=== PATIENT | female | born 1930 | race Caucasian/White ===

== ENCOUNTER 2016-09-07 10:38 | Emergency (ER) | payer MEDICARE, BC ==
[~2016-09-07] VITALS: Wt 95.0 kg
[~2016-09-07 10:38] MED LIST: AMLO-147 PO; ATEN50TA PO; ATOR80TA75 PO; CARB100T2 PO; CIPR500T4 PO; CLOB60CR2 TOP; COU5 PO; FLUT16SP17 NASAL; LETR2.5T PO; METR500T14 PO; NIZ30CR2 TOP; OMEP40CA6 PO; OXYB5TAB PO; TEMA15CA PO; VALS1TAB82 PO
[2016-09-07] MEDS ORDERED: SOD CHLORIDE 0.9% 1,000 ML IV STA (15:25)
[2016-09-07] MEDS ORDERED: ONDANSETRON 4 MG INJ IV STA (15:25)
[2016-09-07] MEDS ORDERED: morphine 4 MG/ML VIAL IV STA (15:25)
[2016-09-07 15:53] LABS: ADD SCAN DIFF NO
[2016-09-07 15:56] LABS: BASOPHIL # 0.1 10^3/ul (0.0-0.1); EOSINOPHILS % 0.4 % (0.0-7.0); HEMATOCRIT 38.3 % (37.0-47.0); HEMOGLOBIN 12.6 g/dl (12.0-16.0); LYMPHOCYTES # 1.5 10^3/ul (0.8-2.9); LYMPHOCYTES % 22.5 % (15.0-51.0); MEAN CORPUSCULAR HEMOGLOBIN 30.9 pg (29.0-33.0); MEAN CORPUSCULAR HGB CONC 32.9 g/dl (32.0-37.0); MEAN CORPUSCULAR VOLUME 93.9 fl (82.0-101.0); MEAN PLATELET VOLUME 10.7 fl (7.4-10.4); MONOCYTE # 0.5 10^3/ul (0.3-0.9); MONOCYTES % 7.6 % (0.0-11.0); NEUTROPHIL # 4.7 10^3/ul (1.6-7.5); NEUTROPHILS % 68.2 % (39.0-77.0); PLATELET COUNT 184 10^3/UL (140-415); RED BLOOD COUNT 4.08 10^6/ul (4.20-5.40); RED CELL DISTRIBUTION WIDTH 12.8 % (11.5-14.5); WHITE BLOOD COUNT 6.9 10^3/ul (4.8-10.8)
[2016-09-07 16:03] LABS: POTASSIUM 4.6 mmol/L (3.5-5.1)
[2016-09-07 16:04] LABS: INR 1.36; PROTIME 16.8 Sec (12.2-14.2); PT RATIO 1.3
[2016-09-07 16:05] LABS: BILIRUBIN,INDIRECT 0.5 mg/dl (0-1.1); BILIRUBIN,TOTAL 0.5 mg/dl (0.2-1.3); CREATININE 1.14 mg/dl (0.44-1.00); PARTIAL THROMBOPLASTIN TIME 26.2 Sec (25.0-35.0)
[2016-09-07 16:06] LABS: ALBUMIN/GLOBULIN RATIO 1.29; CALCIUM 10.4 mg/dl (8.4-10.2); TOTAL PROTEIN 7.1 g/dl (6.1-8.1)
--- NOTE | 2016-09-07 16:40 | RADRPT ---
PROCEDURE: CT Abdomen and Pelvis without intravenous contrast. CLINICAL INDICATION: Lower abdominal pain. Decreased appetite. Nausea. . TECHNIQUE: CT scan of the abdomen and pelvis without intravenous contrast was performed on a multi -slice CT scanner. Coronal and sagittal reformatted images were obtained from the axial source image s. Images were reviewed on a high-resolution PACS workstation. Total DLP = 1246.8 mGy-cm. CTDIvol = 21.5 mGy. One or more of the following dose reduction techniques were used: Automated exposure control. Adjustment of the mA and/or kV according to patient size. Use of iterative reconstruction technique. COMPARISON: 02/21/2015 FINDINGS: CT abdomen and pelvis: The lung bases are clear. The heart size is normal in size. There is dense calcific atherosclerosi s of the mitral valve. Small anterior pericardial effusion is present.. The liver is normal in siz e and density without focal mass or intrahepatic biliary dilatation. The spleen is normal in size a nd homogeneous in density. The pancreas as visualized is normal. The gallbladder has been removed .. The adrenal glands are normal. The kidneys are symmetric in size. There is a 1.9 cm exophytic mass at the upper pole of the left kidney unchanged. There is an exophytic high density 1.7 cm mass at the lower pole of the left kidney slightly larger than previous exam. There is no evidence of o bstructive uropathy or urolithiasis. The stomach is partially collapsed, but is grossly unremarkable. The small bowels are unremarkable. The colon and rectum are normal. There is extensive sigmoid diverticulosis. There is no evidence of appendicitis or diverticulitis. The uterus has been removed.. The bladder is normal. There is no ab dominal or pelvic adenopathy, free fluid, free air, mass or mesenteric inflammation. The aorta is normal in caliber with calcific atherosclerosis . The osseous structures showing degen erative spondylosis of the spine. Spinal stenosis is present at the L4-5 L5-S1 levels. No osteolyti c or osteoblastic lesions are identified. The soft tissues are within normal limits. Lack of IV an d oral contrast limits sensitivity of exam. IMPRESSION: 1. Status post cholecystectomy and hysterectomy. 2. Sigmoid diverticulosis without evidence of diverticulitis. 3. Bilateral stable hyperdense exophytic renal masses. These likely represent a hemorrhagic or prot einaceous cyst. Ultrasound of the kidneys could be obtained to further evaluate. 4. Calcific atherosclerosis of the aorta and mitral valve. 5. 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 RPTAT: VV .Juan Oshea MD, Date Time Electronically viewed and signed by .Juan Oshea MD, MD on 09/07/2016 16:39 .L/
[2016-09-07] MEDS ORDERED: DOCU-144 PO (16:58)
[2016-09-07] MEDS ORDERED: ONDA4TAB14 PO (16:58)
[2016-09-07] MEDS ORDERED: HYDR-902 PO (16:58)
--- NOTE | 2016-09-07 17:01 | ERD ---
ER Documentation Chief Complaint Date/Time DATE: 09/07/16 TIME: 17:00 Chief Complaint abd pain x 10 days with n/v denies diarrhea HPI Patient is an 86-year-old female with hypertension and previous blood clot who presents with abdominal pain. She has had abdominal pain for 1.5 weeks. The pain was getting worse. She called her primary doctor who told her to go to an urgent care and went to urgent care. However they sent her to the emergency department for further workup. The pain is in the lower abdomen and is on the left and right lower quadrants. It moves back and forth. She has had no treatment for pain as of yet. Upon review of old medical records this is the patient's seventh visit to the ER since 2008. ROS All systems reviewed and are negative except as per history of present illness. Medications Home Meds Active Scripts Docusate Sodium* (Colace*) 100 Mg Capsule, 100 MG PO TID, #30 CAP Prov:CLEO GAMEZ MD 09/07/16 Ondansetron (Ondansetron Odt) 4 Mg Tab.rapdis, 4 MG PO Q6H Y for NAUSEA AND/OR VOMITING, #30 TAB Prov:CLEO GAMEZ MD 09/07/16 Hydrocodone/Acetaminophen ([place] 10-325 Tablet) 1 Each Tablet, 1 TAB PO Q6H Y for PAIN, #7 TAB Prov:CLEO GAMEZ MD 09/07/16 Metronidazole (Flagyl) 500 Mg Tab, 500 MG PO Q8 for 7 Days, TAB Prov:COURT JUÁREZ MD 02/21/15 Ciprofloxacin Hcl* (Ciprofloxacin Hcl*) 500 Mg Tablet, 500 MG PO BID for 7 Days , TAB Prov:COURT JUÁREZ MD 02/21/15 Reported Medications Carbamazepine* (Carbamazepine*) 100 Mg Tab.chew, 50 MG PO BID, TAB.CHEW 02/21/15 Clobetasol Propionate* (Clobetasol Propionate*) 60 Gm Cream.gm., 1 APPLIC TOP BID, TUB 02/21/15 Ketoconazole* (Nizoral*) 2%-30 Gm Cream..g., 1 APPLIC TOP DAILY, TUB 02/21/15 Oxybutynin Chloride* (Oxybutynin Chloride* ER) 5 Mg/Blist Pack Tab.osm.24, 5 MG PO DAILY, TAB.SA 02/21/15 Letrozole* (Letrozole*) 2.5 Mg Tablet, 2.5 MG PO DAILY, TAB 02/21/15 Omeprazole* (Omeprazole*) 40 Mg Capsule.dr, 40 MG PO BID, CAP 02/21/15 Fluticasone Propionate* (Fluticasone Propionate* Nasal) 50 Mcg/[place] - 16 Gm [place].susp, 2 SPRAYS NASAL DAILY, EA TO EACH NOSTRIL 02/21/15 Temazepam* (Temazepam*) 15 Mg Capsule, 15 MG PO HS Y for INSOMNIA, CAP 02/21/15 Warfarin Sod (Coumadin) 5 Mg Tablet, 5 MG PO DAILY, TAB 02/21/15 Atorvastatin* (Atorvastatin*) 80 Mg Tablet, 80 MG PO HS, TAB 02/21/15 Amlodipine Besylate* (Amlodipine Besylate*) 10 Mg Tablet, 10 MG PO DAILY, TAB 02/21/15 Atenolol* (Atenolol*) 50 Mg Tablet, 50 MG PO DAILY, TAB 02/21/15 Valsartan-Hydrochlorothiazide (Valsartan-HCTZ) 320-25 Mg Tablet, 1 TAB PO DAILY , TAB 02/21/15 Allergies Allergies: Coded Allergies: No Known Allergies (Verified Allergy, Mild, 02/21/15) PMhx/Soc History of Surgery: Yes (APPENDICITES, VARICOSE VEIN, GALLBLADDER REMOVAL, HYSTERECTOMY,BREAST CA) Anesthesia Reaction: No Hx Neurological Disorder: Yes (TRIGEMINAL NEURALGIA) Hx Respiratory Disorders: Yes (PE) Hx Cardiac Disorders: Yes (HPT, AORTIC STENOSIS, HIGH CHOLESTEROL) Hx Psychiatric Problems: No Hx Miscellaneous Medical Probl: No Hx Alcohol Use: No Hx Substance Use: No Hx Tobacco Use: No FmHx Family History: No diabetes Physical Exam Vitals Vital Signs Date Time Temp Pulse Resp B/P Pulse Ox O2 Delivery O2 Flow Rate FiO2 09/07/16 10:43 98.8 90 18 143/66 99 Physical Exam Const: Mild distress secondary to pain Head: Atraumatic Eyes: Normal Conjunctiva ENT: Normal External Ears, Nose and Mouth. Neck: Full range of motion..~ No meningismus. Resp: Clear to auscultation bilaterally Cardio: Regular rate and rhythm, no murmurs Abd: Soft, right and left lower quadrant pain with palpation without rebound or guarding Skin: No petechiae or rashes Back: No midline or flank tenderness Ext: No cyanosis, or edema Neur: Awake and alert Psych: Normal Mood and Affect Result Diagram: 09/07/16 1545 09/07/16 1545 Results 24 hrs Laboratory Tests Test 09/07/16 15:45 White Blood Count 6.910^3/ul Red Blood Count 4.0810^6/ul Hemoglobin 12.6g/dl Hematocrit 38.3% Mean Corpuscular Volume 93.9fl Mean Corpuscular Hemoglobin 30.9pg Mean Corpuscular Hemoglobin Concent 32.9g/dl Red Cell Distribution Width 12.8% Platelet Count 32009^3/UL Mean Platelet Volume 10.7fl Neutrophils % 68.2% Lymphocytes % 22.5% Monocytes % 7.6% Eosinophils % 0.4% Basophils % 1.0% Nucleated Red Blood Cells % 0.0/100WBC Neutrophils # 4.710^3/ul Lymphocytes # 1.510^3/ul Monocytes # 0.510^3/ul Eosinophils # 0.010^3/ul Basophils # 0.110^3/ul Nucleated Red Blood Cells # 0.010^3/ul Prothrombin Time 16.8Sec Prothrombin Time Ratio 1.3 INR International Normalized Ratio 1.36 Activated Partial Thromboplast Time 26.2Sec Sodium Level 144mmol/L Potassium Level 4.6mmol/L Chloride Level 110mmol/L Carbon Dioxide Level 21mmol/L Anion Gap 18 Blood Urea Nitrogen 25mg/dl Creatinine 1.14mg/dl Glucose Level 123mg/dl Calcium Level 10.4mg/dl Total Bilirubin 0.5mg/dl Direct Bilirubin 0.00mg/dl Indirect Bilirubin 0.5mg/dl Aspartate Amino Transf (AST/SGOT) 26IU/L Alanine Aminotransferase (ALT/SGPT) 28IU/L Alkaline Phosphatase 161IU/L Total Protein 7.1g/dl Albumin 4.0g/dl Globulin 3.10g/dl Albumin/Globulin Ratio 1.29 Lipase 230U/L Current Medications Medications (Trade) Dose Ordered Sig/Jewel Route PRN Reason Start Time Stop Time Status Last Admin Dose Admin Sodium Chloride (NS) 1,000 ml @ 1,000 mls/hr Q1H STAT IV 09/07/16 15:25 09/07/16 16:24 DC 09/07/16 15:25 Morphine Sulfate (morphine) 4 mg ONCE STAT IV 09/07/16 15:25 09/07/16 15:26 DC 09/07/16 15:25 Ondansetron HCl (Zofran Inj) 4 mg ONCE STAT IV 09/07/16 15:25 09/07/16 15:26 DC 09/07/16 15:25 Procedures/MDM EKG read by me: Rate/Rhythm: Regular rate and rhythm at a rate of 80 Intervals: Normal Impression: No evidence of ischemia or arrhythmia PROCEDURE: CT Abdomen and Pelvis without intravenous contrast. CLINICAL INDICATION: Lower abdominal pain. Decreased appetite. Nausea. . TECHNIQUE: CT scan of the abdomen and pelvis without intravenous contrast was performed on a multi-slice CT scanner. Coronal and sagittal reformatted images were obtained from the axial source images. Images were reviewed on a high- resolution PACS workstation. Total DLP = 1246.8 mGy-cm. CTDIvol = 21.5 mGy. One or more of the following dose reduction techniques were used: Automated exposure control. Adjustment of the mA and/or kV according to patient size. Use of iterative reconstruction technique. COMPARISON: 02/21/2015 FINDINGS: CT abdomen and pelvis: The lung bases are clear. The heart size is normal in size. There is dense calcific atherosclerosis of the mitral valve. Small anterior pericardial effusion is present.. The liver is normal in size and density without focal mass or intrahepatic biliary dilatation. The spleen is normal in size and homogeneous in density. The pancreas as visualized is normal. The gallbladder has been removed.. The adrenal glands are normal. The kidneys are symmetric in size. There is a 1.9 cm exophytic mass at the upper pole of the left kidney unchanged. There is an exophytic high density 1.7 cm mass at the lower pole of the left kidney slightly larger than previous exam. There is no evidence of obstructive uropathy or urolithiasis. The stomach is partially collapsed, but is grossly unremarkable. The small bowels are unremarkable. The colon and rectum are normal. There is extensive sigmoid diverticulosis. There is no evidence of appendicitis or diverticulitis. The uterus has been removed.. The bladder is normal. There is no abdominal or pelvic adenopathy, free fluid, free air, mass or mesenteric inflammation. The aorta is normal in caliber with calcific atherosclerosis . The osseous structures showing degenerative spondylosis of the spine. Spinal stenosis is present at the L4-5 L5-S1 levels. No osteolytic or osteoblastic lesions are identified. The soft tissues are within normal limits. Lack of IV and oral contrast limits sensitivity of exam. IMPRESSION: 1. Status post cholecystectomy and hysterectomy. 2. Sigmoid diverticulosis without evidence of diverticulitis. 3. Bilateral stable hyperdense exophytic renal masses. These likely represent a hemorrhagic or proteinaceous cyst. Ultrasound of the kidneys could be obtained to further evaluate. 4. Calcific atherosclerosis of the aorta and mitral valve. 5. Degenerative spondylosis of the spine with spinal stenosis at the L4-5 L5- S1 levels. RPTAT: VV .Juan Oshea MD, MD Date Time Electronically viewed and signed by .Juan Oshea MD, on 09/07/2016 16:39 Patient is an 86-year-old female who presents with abdominal pain. She had a full workup including laboratory studies and CT scan of the abdomen and pelvis. At this point there is no sign of bowel obstruction. She has already had an appendectomy and cholecystectomy and I doubt Appendicitis or cholecystitis. I doubt pancreatitis. I believe outpatient management is appropriate. The patient can return for any worsening symptoms. She should follow-up closely with her primary doctor tomorrow morning for evaluation. She will return sooner for any worsening symptoms. The patient understands the plan and is okay for discharge at this time. She will be given a prescription for [place], was Zofran, and Colace. Departure Diagnosis: Primary Impression: Abdominal pain Abdominal location: unspecified location Qualified Code: R10.9 - Abdominal pain, unspecified location Condition: Fair Patient Instructions: Abdominal Pain Referrals: Dr. Chang Additional Instructions: FOLLOW UP WITH YOUR PRIMARY CARE PHYSICIAN TOMORROW.Return to this facility if you are not improving as expected. CLEO GAMEZ MD Sep 07, 2016 17:01
[2016-09-07 17:36] VITALS: BP 161/56; PULSE 60; RESP 19; TEMP 98
== END 2016-09-07 17:37 | disposition home or self-care (01) ==
LOC: E/R 10:38
DX: R10.32 Left lower quadrant pain (principal); R10.31 Right lower quadrant pain; R11.2 Nausea with vomiting, unspecified; N18.9 Chronic kidney disease, unspecified; Z85.3 Personal history of malignant neoplasm of breast; Z79.01 Long term (current) use of anticoagulants
CPT/HCPCS: 36415; 74176; 80053; 83690; 85025; 85610; 85730; 96374; 96375; 99285; J2270; J2405; J7030; 93005